=== PATIENT | female | born 1995 | race Two or more races ===

== ENCOUNTER 2016-11-04 01:49 | Emergency (ER) | payer SELFPAY ==
[~2016-11-04] VITALS: Ht 162.6 cm; Wt 64.9 kg
--- NOTE | 2016-11-04 01:50 | NUR ---
to bed 4 bib paramedics c/o etoh, L eye hematoma noted. pt denies ko. pt admits to drinking alcohol. pt aaox4 no acute distress noted, resp even and unlabored. place pt on cardaic monitoring, continuous pox. pending er md graham.
--- NOTE | 2016-11-04 02:58 | NUR ---
PT TRANSPORTED TO RADIOLOGY FOR CT HEAD.
--- NOTE | 2016-11-04 03:09 | NUR ---
PT BACK FROM RADIOLOGY. PENDING CT HEAD AND CT FACIAL REPORT. PT AAOX4 NO ACUTE DISTRESS NOTED, RESP EVEN AND UNLABORED.
--- NOTE | 2016-11-04 04:55 | NUR ---
PT ASLEEP, NO ACUTE DISTRESS NOTED, RESP EVEN AND UNLABORED. CALL LIGHT WITHIN REACH. WILL CONTINUE TO MONITOR PT CLOSELY.
--- NOTE | 2016-11-04 05:30 | NUR ---
Patient discharged to home in stable condition. Written and verbal after care instructions given. Patient verbalizes understanding of instruction. ambulatory with a steady gait noted. pt aaox4 no acute distress noted, resp even and unlabored. advice pt not to drive or operate any machinery due alcohol intoxication. pt verbalize understanding.
[2016-11-04 05:34] VITALS: BP 127/63
== END 2016-11-04 05:34 | disposition home or self-care (01) ==
LOC: ER 01:52
DX: S00.12XA Contusion of left eyelid and periocular area, initial encounter (principal); F10.129 Alcohol abuse with intoxication, unspecified; R79.89 Other specified abnormal findings of blood chemistry; W19.XXXA Unspecified fall, initial encounter; Y93.89 Activity, other specified; Y92.89 Other specified places as the place of occurrence of the external cause; Y99.9 Unspecified external cause status
CPT/HCPCS: 70450-TC; 70486-TC; 82962-TC; A4606; Z7610